=== PATIENT | female | born 1965 | race Caucasian/White ===

== ENCOUNTER 2017-02-04 12:18 | Emergency (ER) | payer MEDICARE, MEDICAID ==
[~2017-02-04] VITALS: Ht 157.5 cm; Wt 84.0 kg
[~2017-02-04 12:18] MED LIST: CLON1TAB PO; GEODON
[2017-02-04 12:45] VITALS: BP 103/62
== END 2017-02-04 14:32 | disposition home or self-care (01) ==
LOC: ER 13:26
DX: T14.8 Other injury of unspecified body region (principal); B86 Scabies; K21.9 Gastro-esophageal reflux disease without esophagitis; F17.210 Nicotine dependence, cigarettes, uncomplicated; Z88.0 Allergy status to penicillin; Z88.2 Allergy status to sulfonamides; Z79.899 Other long term (current) drug therapy; Z90.49 Acquired absence of other specified parts of digestive tract; W57.XXXA Bitten or stung by nonvenomous insect and other nonvenomous arthropods, initial encounter; Y93.89 Activity, other specified; Y92.89 Other specified places as the place of occurrence of the external cause; Y99.8 Other external cause status
CPT/HCPCS: 99282